=== PATIENT | female | born 1985 | race Caucasian/White ===

== ENCOUNTER 2017-05-21 07:04 | Emergency (ER) | payer OTHER ==
[2017-05-21] MEDS ORDERED: MORPHINE SULFATE 10 MG/ML INJ IM ONE (07:42)
[2017-05-21] MEDS ORDERED: ONDANSETRON HCL INJ/PF 4 MG/2 ML SDV IM ONE (07:42)
--- NOTE | 2017-05-21 07:42 | ER Document Report ---
ED General - General Mode of Arrival: Ambulatory Information source: Patient TRAVEL OUTSIDE OF THE [place] IN LAST 30 DAYS: No - HPI Onset: This morning Onset/Duration: Sudden <MAURA MULLINS - Last Filed: 05/21/17 11:38> <ANDRES WHITT - Last Filed: 05/21/17 13:16> - General Chief Complaint: Lower Abdominal Pain Stated Complaint: LOWER ABDOMINAL PAIN Time Seen by Provider: 05/21/17 07:34 Notes: Patient is a 31 year old female presenting to the emergency department complaining of pain in her lower left abdomen. Patient states the pain woke her out of her sleep around 0600 this morning. Patient has a known cyst on her left ovary which was diagnosed at [facility] 2 months ago. Patient believes this is causing her pain. Patient states the pain is severe and she has never had pain like this before. PCP is Dr. Bajwa. Patient has surgery scheduled to have the left cyst, ovary, and tube removed Sunday in [place]. (MAURA MULLINS) - Related Data Allergies/Adverse Reactions: Sulfa (Sulfonamide Antibiotics) Allergy (Verified 05/21/17 07:10) Home Medications: Current Home Medications Acetaminophen with Codeine [Acetaminophen-Cod #3 Tablet] 1 tab PO QID 05/21/17 [ History] Norethindrone-E.estradiol-Iron [Loestrin Fe 1.5-30 Tablet] 1 tab PO DAILY [History] Past Medical History - General Information source: Patient - Social History Smoking Status: Never Smoker Cigarette use (# per day): No Chew tobacco use (# tins/day): No Family History: Reviewed & Not Pertinent Pulmonary Medical History: Reports: Hx Asthma Past Surgical History: Reports: Hx Cholecystectomy, Hx Tonsillectomy <MAURA MULLINS - Last Filed: 05/21/17 11:38> Review of Systems - Review of Systems Constitutional: No symptoms reported EENT: No symptoms reported Cardiovascular: No symptoms reported Respiratory: No symptoms reported Gastrointestinal: See HPI, Abdominal pain Genitourinary: No symptoms reported Female Genitourinary: No symptoms reported Musculoskeletal: No symptoms reported Skin: No symptoms reported Hematologic/Lymphatic: No symptoms reported Neurological/Psychological: No symptoms reported -: Yes All other systems reviewed and negative <MAURA MULLINS - Last Filed: 05/21/17 11:38> Physical Exam - General General appearance: Appears well In distress: Moderate - HEENT Head: Normocephalic, Atraumatic Eyes: Normal Conjunctiva: Normal Pupils: PERRL - Respiratory Respiratory status: No respiratory distress Breath sounds: Normal - Cardiovascular Rhythm: Regular Heart sounds: Normal auscultation Murmur: No Friction rub: No Gallop: None auscultated - Abdominal Inspection: Obese Distension: No distension Bowel sounds: Normal Tenderness: Tender - LLQ. No: Rebound - Back Back: Normal - Extremities General upper extremity: Normal inspection, Normal ROM General lower extremity: Normal inspection, Normal ROM - Neurological Neuro grossly intact: Yes Cognition: Normal Orientation: AAOx4 Tamra Coma Scale Eye Opening: Spontaneous [place] Coma Scale Verbal: Oriented Tamra Coma Scale Motor: Obeys Commands Tamra Coma Scale Total: 15 Speech: Normal - Psychological Associated symptoms: Normal affect, Normal mood - Skin Skin Temperature: Warm Skin Moisture: Dry Skin Color: Normal <SUSANNAMAURA - Last Filed: 05/21/17 11:38> - Vital signs Vitals: Temp Pulse Resp BP Pulse Ox 97.8 F 91 20 106/73 95 05/21/17 07:15 05/21/17 07:15 05/21/17 07:15 05/21/17 07:15 05/21/17 07:15 Course - Laboratory Result Diagrams: 05/21/17 09:10 05/21/17 10:34 - Consults Dr. Bajwa Time consulted: 11:30 - Dr. Bajwa accepted patient to be admittied to [facility]. <SUSANNATAYLERJANIA - Last Filed: 05/21/17 11:38> - Laboratory Result Diagrams: 05/21/17 09:10 05/21/17 10:34 - Diagnostic Test Radiology reviewed: Image reviewed, Reports reviewed - Ultrasound shows an enlarged left ovary with a complex cyst. Overall structure measures 16.7 x 16 x 13.6 cm <ANDRES WHITT - Last Filed: 05/21/17 13:16> - Re-evaluation Re-evalutation: 05/21/17 11:14 Patient is feeling better, but does still have quite a bit of pain. Will give additional pain medication, discharge home with prescription for Percocet to take. She is scheduled for surgical removal of the cyst tomorrow in [place]. 05/21/17 11:42 Patient is requesting transfer to [facility] for more urgent treatment of her painful cyst. This is not unreasonable as she is requiring escalating doses of IV narcotics to control her pain, and she does not normally take narcotic medication. 05/21/17 13:16 I am told that transport will be here soon for the patient. I want to check on her and she is resting comfortably with vital signs stable and she is stable for transfer. (ANDRES WHITT) - Vital Signs Vital signs: Temp Pulse Resp BP Pulse Ox 97.8 F 79 20 126/86 H 94 05/21/17 11:34 05/21/17 11:34 05/21/17 11:34 05/21/17 11:34 05/21/17 11:34 - Laboratory Laboratory results interpreted by me: 05/21/17 10:34 Carbon Dioxide 18 L Creatinine 0.39 L AST 41 H Discharge <MAURA MULLINS - Last Filed: 05/21/17 11:38> <ANDRES WHITT - Last Filed: 05/21/17 13:16> - Discharge Clinical Impression: Complex cyst of left ovary Condition: Stable Disposition: [facility] Additional Instructions: Take the pain medication as prescribed to control your pain today. Follow-up with your doctor tomorrow for surgical removal of the cyst as scheduled. If the pain medication does not control your pain, call your doctor for further instructions as they may request for you to come directly to [facility]. RETURN TO THE EMERGENCY ROOM IF ANY NEW OR WORSENING SYMPTOMS. Prescriptions: Oxycodone HCl/Acetaminophen [Percocet 5-325 mg Tablet] 1 - 2 tab PO ASDIR PRN # 15 tablet PRN Reason: Scribe Attestation: 05/21/17 08:48 I personally performed the services described in the documentation, reviewed and edited the documentation which was dictated to the scribe in my presence, and it accurately records my words and actions. (ANDRES WHITT) Scribe Documentation - Scribe Written by Chitrae:: Rita Reeder, 05/21/2017 08:04 acting as scribe for :: Verónica <MAURA MULLINS - Last Filed: 05/21/17 11:38>
[2017-05-21] MEDS ORDERED: FENTANYL CITRATE INJ/PF 100 MCG/2 ML AMPUL IV ONE (08:36)
[2017-05-21] MEDS ORDERED: NORMAL SALINE 1000 ML 1,000 ML IV ONE (08:36)
--- NOTE | 2017-05-21 09:39 | RADIOLOGY REPORT (SQ) ---
EXAM DESCRIPTION: U/S NON OB PEL TV W/DOPPLER COMPLETED DATE/TIME: 05/21/2017 8:55 am REASON FOR STUDY: L cyst x 2 months, new severe pain today COMPARISON: None. TECHNIQUE: Dynamic and static grayscale images acquired of the pelvis via transabdominal and transva ginal approach and recorded on PACS. Additional selected color Doppler and spectral images recorded. LIMITATIONS: None. FINDINGS: UTERUS: Contour normal. No mass. ENDOMETRIAL STRIPE: No focal or generalized thickening. No masses. CERVIX: No nabothian cysts. RIGHT OVARY: No abnormal masses. RIGHT OVARY DOPPLER: Normal arterial vascular flow without evidence for torsion. LEFT OVARY: 16 cm cystic lesion with internal flow within septation. LEFT OVARY DOPPLER: Normal arterial vascular flow without evidence for torsion. FREE FLUID: None noted. OTHER: No other significant finding. MEASUREMENTS: UTERUS: 9.2 x 5.5 x 3.9 cm ENDOMETRIAL STRIPE: 9 mm RIGHT OVARY: 3.1 x 2.8 x 2 cm LEFT OVARY: 16.7 x 16 x 13.6 cm IMPRESSION: Enlarged left ovary containing large complex cyst. TECHNICAL DOCUMENTATION: JOB ID: [id number]- All Rights Reserved
[2017-05-21] MEDS ORDERED: ONDANSETRON HCL INJ/PF 4 MG/2 ML SDV IV ONE ×2 (09:46→11:22)
[2017-05-21] MEDS ORDERED: HYDROMORPHONE HCL INJ/PF 2 MG/ML AMPULE IV ONE ×2 (09:46→11:12)
[2017-05-21 10:01] LABS: ABSOLUTE BASOPHILS # (AUTO) 0.1 10^3/uL (0.0-0.2); ABSOLUTE EOSINOPHILS # (AUTO) 0.1 10^3/uL (0.0-0.6); ABSOLUTE LYMPHOCYTES (AUTO) 1.6 10^3/uL (0.5-4.7); ABSOLUTE MONOCYTES (AUTO) 0.5 10^3/uL (0.1-1.4); ABSOLUTE NEUT (AUTO) 5.3 10^3/uL (1.7-8.2); BASOPHILS % (AUTO) 0.7 % (0-2); EOSINOPHILS % (AUTO) 0.8 % (0-6); HEMATOCRIT 41.8 % (36.0-47.0); HEMOGLOBIN 14.2 g/dL (12.0-15.5); HGB HCT DIFFERENCE 0.8; LYMPHOCYTES % (AUTO) 21.6 % (13-45); MEAN CORPUSCULAR HEMOGLOBIN 27.7 pg (27.0-33.4); MEAN CORPUSCULAR VOLUME 82 fl (80-97); MONOCYTES % (AUTO) 7.2 % (3-13); RED BLOOD COUNT 5.13 10^6/uL (3.72-5.28); RED CELL DISTRIBUTION WIDTH 13.4 % (11.5-14.0); SEGMENTED NEUTROPHILS % (AUTO) 69.7 % (42-78); WHITE BLOOD COUNT 7.6 10^3/uL (4.0-10.5)
[2017-05-21 11:06] LABS: ALANINE AMINOTRANSFERASE 37 U/L (9-52); ALBUMIN 3.8 g/dL (3.5-5.0); ALKALINE PHOSPHATASE 95 U/L (38-126); ANION GAP 15 (5-19); ASPARTATE AMINO TRANSFERASE 41 U/L (14-36); BILIRUBIN,DIRECT 0.3 mg/dL (0.0-0.4); BILIRUBIN,TOTAL 0.4 mg/dL (0.2-1.3); BLOOD UREA NITROGEN 8 mg/dL (7-20); CALCIUM 8.7 mg/dL (8.4-10.2); CARBON DIOXIDE 18 mmol/L (22-30); CHLORIDE 106 mmol/L (98-107); CREATININE RESULT 0.39 mg/dL (0.52-1.25); GLUCOSE 94 mg/dL (75-110); POTASSIUM 4.1 mmol/L (3.6-5.0); SODIUM 138.6 mmol/L (137-145); TOTAL PROTEIN 6.4 g/dL (6.3-8.2)
[2017-05-21 11:45] VITALS: BP 126/86
[2017-05-21 12:07] LABS: APPEARANCE,URINE CLEAR; BILIRUBIN,URINE NEGATIVE (NEGATIVE); GLUCOSE, URINE NEGATIVE (NEGATIVE); KETONES,URINE NEGATIVE (NEGATIVE); LEUKOCYTE ESTERASE,URINE NEGATIVE (NEGATIVE); NITRITE,URINE NEGATIVE (NEGATIVE); PROTEIN,URINE NEGATIVE (NEGATIVE); URINE SPECIFIC GRAVITY 1.012; UROBILINOGEN,URINE NEGATIVE mg/dL (<2.0)
[2017-05-21 12:13] LABS: BACTERIA,URINE TRACE /HPF
== END 2017-05-21 14:00 | disposition short-term general hospital (02) ==
LOC: ER 07:04
DX: N83.202 Unspecified ovarian cyst, left side (principal); R10.32 Left lower quadrant pain; J45.909 Unspecified asthma, uncomplicated; Z90.49 Acquired absence of other specified parts of digestive tract; Z88.2 Allergy status to sulfonamides
CPT/HCPCS: 96376; 99285; 96372; 96361; 96374; 96375; 36415; 84703; 85025; 80053; 81001; 76830; 93976; J3010; J2270; J1170; J2405; J7030

== ENCOUNTER 2019-07-04 16:16 | Emergency (ER) | payer OTHER ==
[2019-07-04] MEDS ORDERED: IPRATROPIUM/ALBUTEROL 0.5-2.5 MG/3 ML AMPUL NEB ONE (17:20)
[2019-07-04] MEDS ORDERED: ACETAMINOPHEN 325 MG TABLET PO ONE (17:20)
--- NOTE | 2019-07-04 17:45 | ER Document Report ---
ED Medical Screen (RME) - General Chief Complaint: Flu Symptoms Stated Complaint: FLU SYMPTOMS Time Seen by Provider: 07/04/19 17:02 Primary Care Provider: NORMAN MORAN PA-C [Primary Care Provider] - Follow up in 3-5 days Mode of Arrival: Ambulatory Information source: Patient Notes: This 35-year-old female presents with risk family for flu symptoms. Reports he was exposed to a visitor with influenza A. Reports her symptoms started today. She reports that she also has history of asthma increased cough and wheeze. Has used her inhaler pump 3-4 times in the past 2 days. No complaints of vomiting diarrhea but reports she feels very nauseated with body aches her chest hurts with the cough. TRAVEL OUTSIDE OF THE [place] IN LAST 30 DAYS: No - Related Data Allergies/Adverse Reactions: Sulfa (Sulfonamide Antibiotics) Allergy (Verified 05/21/17 07:10) Past Medical History - General Information source: Patient - Social History Cigarette use (# per day): No Chew tobacco use (# tins/day): No Frequency of alcohol use: None Drug Abuse: None Lives with: Family Family history: None Pulmonary Medical History: Reports: Hx Asthma Renal/ Medical History: Denies: Hx Peritoneal Dialysis Past Surgical History: Reports: Hx Cholecystectomy, Hx Tonsillectomy - Immunizations History of Influenza Vaccine for 03/2019 - 08/2019 Season: No Review of Systems - Review of Systems Notes: Review HPI for review of systems., All other systems negative Physical Exam - Vital signs Vitals: Temp Pulse BP Pulse Ox 101.1 F H 142 H 134/65 H 98 07/04/19 16:52 07/04/19 16:52 07/04/19 16:52 07/04/19 16:52 - General General appearance: Alert In distress: None - HEENT Head: Normocephalic Eyes: Normal Conjunctiva: Normal Extraocular movements intact: Yes Pupils: PERRL Ears: Normal External canal: Normal Tympanic membrane: Normal Nasal: Normal Mucous membranes: Moist Pharynx: Normal. No: Erythema, Peritonsillar abscess, Tonsillar hypertrophy Neck: Normal, Supple. No: Lymphadenopathy - Respiratory Respiratory status: No respiratory distress Chest status: Pain with cough, Pain with deep breathing Breath sounds: Normal Chest palpation: Normal - Cardiovascular Rhythm: Regular, Tachycardia Heart sounds: Normal auscultation Murmur: No - Abdominal Inspection: Normal Distension: No distension Tenderness: Nontender - Back Back: Normal. No: CVA tenderness - Extremities General upper extremity: Normal ROM General lower extremity: Normal ROM - Neurological Neuro grossly intact: Yes Cognition: Normal Orientation: AAOx4 Tamra Coma Scale Eye Opening: Spontaneous [place] Coma Scale Verbal: Oriented [place] Coma Scale Motor: Obeys Commands Tamra Coma Scale Total: 15 Speech: Normal - Psychological Associated symptoms: Normal affect, Normal mood - Skin Skin Temperature: Warm Skin Moisture: Dry Skin Color: Normal Course - Re-evaluation Re-evalutation: 07/04/19 18:25 33-year-old female presents emergency department with complaints of cough hurts when she takes deep breath or cough with history of asthma also presents with fever and recent exposure to influenza A from a visitor staying at their house. Patient is here with her 3 kids for the same symptoms. Denies vomiting diarrhea. Patient chest x-ray negative for pneumonia. She is positive for influenza A. She received a DuoNeb and albuterol neb. Reports she is breathing better. 07/04/19 18:26 Laboratory 07/04/19 15:23 Influenza A (Rapid) POSITIVE Influenza B (Rapid) NEGATIVE Chest X-Ray 07/04/19 17:20 IMPRESSION: NO ACUTE RADIOGRAPHIC FINDING IN THE CHEST. - Vital Signs Vital signs: Temp Pulse Resp BP Pulse Ox 100.3 F 142 H 20 118/72 97 07/04/19 18:54 07/04/19 18:54 07/04/19 18:54 07/04/19 18:54 07/04/19 18:54 - Diagnostic Test Radiology reviewed: Image reviewed, Reports reviewed Doctor's Discharge - Discharge Clinical Impression: Cough, Influenza A Condition: Stable Disposition: HOME, SELF-CARE Instructions: Acetaminophen, Antinausea Medication ([facility]), Use of Hwma-Lgc-Zfpmkrc Ibuprofen ([facility]), Influenza ([facility]) Additional Instructions: *You have been evaluated for cough, fever, exposed to influenza A. Positive for influenza A *Increase fluid intake as discussed *Take medication as prescribed *Monitor your temperature, take Tylenol or Motrin as indicated *Follow up with a primary care provider within 1 week for recheck *Return to ED for worsening condition, changes, needs Monitor your blood pressure. Your blood pressure was elevated today. This may be because you were anxious, in pain or because you need medication. It is important to follow up with your primary care provider for full evaluation. Prescriptions: Oseltamivir Phosphate [Tamiflu 75 mg Capsule] 75 mg PO BID #10 capsule Forms: Elevated Blood Pressure Referrals: NORMAN MORAN PA-C [Primary Care Provider] - Follow up in 3-5 days
--- NOTE | 2019-07-04 17:49 | RADIOLOGY REPORT (SQ) ---
EXAM DESCRIPTION: CHEST 2 VIEWS COMPLETED DATE/TIME: 07/04/2019 5:35 pm REASON FOR STUDY: cough COMPARISON: None. EXAM PARAMETERS: NUMBER OF VIEWS: two views TECHNIQUE: Digital Frontal and Lateral radiographic views of the chest acquired. RADIATION DOSE: NA LIMITATIONS: none FINDINGS: LUNGS AND PLEURA: No opacities, masses or pneumothorax. No pleural effusion. MEDIASTINUM AND HILAR STRUCTURES: No masses or contour abnormalities. HEART AND VASCULAR STRUCTURES: Heart normal size. No evidence for failure. BONES: No acute findings. HARDWARE: None in the chest. OTHER: No other significant finding. IMPRESSION: NO ACUTE RADIOGRAPHIC FINDING IN THE CHEST. TECHNICAL DOCUMENTATION: JOB ID: [id number]- All Rights Reserved Reading location - IP/workstation name: [email or web address]
[2019-07-04 18:01] LABS: A TYPE INFLUENZA AG POSITIVE (NEGATIVE); B INFLUENZA AG NEGATIVE (NEGATIVE)
[2019-07-04] MEDS ORDERED: ALBUTEROL SULFATE 0.083% NEB 2.5 MG/3 ML AMPUL NEB ONE (18:21)
[2019-07-04] MEDS ORDERED: ONDANSETRON ODT 4 MG TAB (6 TAB/ER DISP) PO PRN (18:43)
[2019-07-04 19:00] VITALS: BP 118/72
== END 2019-07-04 19:11 | disposition home or self-care (01) ==
LOC: ER 16:16
DX: J10.1 Influenza due to other identified influenza virus with other respiratory manifestations (principal); R05 Cough; Z20.828 Contact with and (suspected) exposure to other viral communicable diseases; J45.909 Unspecified asthma, uncomplicated
CPT/HCPCS: 94640 ×2; 99283; 87804; 71046; J7620